=== PATIENT | female | born 1950 | race American Indian/Alaskan Native ===

== ENCOUNTER 2016-07-09 13:31 | Outpatient (CLI) | payer MEDICARE ==
--- NOTE | 2016-07-09 13:59 | XRay Report ---
Chest 2 views: Compared to 11/06/14. History: Chest pain. Findings: Normal cardiomediastinal silhouette. Right-sided deviation of trachea. No consolidation or pleural effusion. Impression: Right-sided deviation of trachea. Also seen in the previous study. 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 No lung consolidation.
== END 2016-07-09 13:32 | disposition home or self-care (01) ==
LOC: XRAY 13:31
PROVIDERS: ATTEND Internal Medicine
DX: R07.9 Chest pain, unspecified (principal); J39.8 Other specified diseases of upper respiratory tract
CPT/HCPCS: 71020